=== PATIENT | male | born 1955 | race Caucasian/White ===

== ENCOUNTER 2016-12-01 15:18 | Emergency (ER) | payer BC ==
[~2016-12-01] VITALS: Ht 157.5 cm; Wt 86.0 kg
[2016-12-01 15:24] VITALS: BP 178/86; PULSE 65; RESP 16; TEMP 98.7; O2SAT 100
[2016-12-01] MEDS ORDERED: ONDA1TAB17 PO (15:30)
[2016-12-01] MEDS ORDERED: FENT1SUB2 (15:30)
[2016-12-01] MEDS ORDERED: CEPH500C PO (15:30)
[2016-12-01] MEDS ORDERED: ZOLP10TA3 PO (15:30)
[2016-12-01] MEDS ORDERED: METO10TA PO (15:30)
[2016-12-01] MEDS ORDERED: SODIUM CHLOR 0.9% 1000 ML INJ 1,000 ML IV SCH (15:31)
[2016-12-01 15:40] VITALS: O2SAT 97
--- NOTE | 2016-12-01 15:40 | PD ---
HPI Chief Complaint: GI Complaint Time Seen by Provider: 15:24 Travel History International Travel<30 days: No Contact w/Intl Traveler<30days: No Traveled to known affect area: No History of Present Illness HPI 61-year-old male complains of epigastric abdominal pain, nausea vomiting. Patient states that the symptoms started this morning. Patient has history of recurrent pancreatitis in the past. Patient also has history of chronic back pain and on fentanyl patch. 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 Patient denies any history of EtOH abuse. Patient states that the pain is severe sharp pain started around the epigastric area with radiation to the back. Patient states that he had persistent nausea vomiting since this morning. Patient denies any fever chills. Patient denies any dysuria or frequency. On a scale of 1-10 the pain is a 10. PFSH Past Medical History Diminished Hearing: No Neurologic: Yes Tetanus Vaccination: Unknown Influenza Vaccination: No Past Surgical History Appendectomy: Yes Pacemaker: Yes Social History Alcohol Use: No (quit years ago) Tobacco Use: Yes Substance Use: No Allergies-Medications (Allergen,Severity, Reaction): Coded Allergies: No Known Allergies (Unverified , 12/01/16) Reported Meds & Prescriptions Reported Meds & Active Scripts Active Reported Abstral (Fentanyl Citrate) 200 Mcg Tab 75 Cephalexin 500 Mg Cap 500 Mg PO Q12H Zolpidem (Zolpidem Tartrate) 10 Mg Tab 10 Mg PO HS PRN Metoclopramide (Metoclopramide HCl) 10 Mg Tab 10 Mg PO QID Ondansetron (Ondansetron HCl) 8 Mg Tab 8 Mg PO TID Review of Systems General / Constitutional: No: Fever Eyes: No: Visual changes HENT: No: Headaches Cardiovascular: No: Chest Pain or Discomfort Respiratory: No: Shortness of Breath Gastrointestinal: Positive: Nausea, Vomiting, Abdominal Pain Genitourinary: No: Dysuria Musculoskeletal: No: Pain Skin: No Rash Neurologic: No: Weakness Psychiatric: No: Depression Endocrine: No: Polydipsia Hematologic/Lymphatic: No: Easy Bruising Physical Exam Narrative GENERAL: Well-nourished, well-developed patient. SKIN: Focused skin assessment warm/dry. HEAD: Normocephalic. EYES: No scleral icterus. No injection or drainage. NECK: Supple, trachea midline. No JVD or lymphadenopathy. CARDIOVASCULAR: Regular rate and rhythm without murmurs, gallops, or rubs. RESPIRATORY: Breath sounds equal bilaterally. No accessory muscle use. GASTROINTESTINAL: Abdomen soft, nondistended. Patient has moderate tenderness on palpation epigastric area. No rebound tenderness. No mass. MUSCULOSKELETAL: No cyanosis, or edema. BACK: Nontender without obvious deformity. No CVA tenderness. Neurologic exam normal. Data Data Last Documented VS Vital Signs Date Time Temp Pulse Resp B/P Pulse Ox O2 Delivery O2 Flow Rate FiO2 12/01/16 15:40 97 12/01/16 15:26 16 12/01/16 15:24 98.7 65 178/86 Orders Complete Blood Count With Diff (12/01/16 15:31) Comprehensive Metabolic Panel (12/01/16 15:31) Lipase (12/01/16 15:31) Prothrombin Time / Inr (Pt) (12/01/16 15:31) Act Partial Throm Time (Ptt) (12/01/16 15:31) Urinalysis - C+S If Indicated (12/01/16 15:31) Ct Abd/Pel W Iv Contrast(Rout) (12/01/16 15:31) Iv Access Insert/Monitor (12/01/16 15:31) Ecg Monitoring (12/01/16 15:31) Oximetry (12/01/16 15:31) Ondansetron Inj (Zofran Inj) (12/01/16 15:45) Pantoprazole Inj (Protonix Inj) (12/01/16 15:45) Sodium Chlor 0.9% 1000 Ml Inj (Ns 1000 M (12/01/16 15:31) Ketorolac Inj (Toradol Inj) (12/01/16 15:45) Diphenhydramine Inj (Benadryl Inj) (12/01/16 16:00) Metoclopramide Inj (Reglan Inj) (12/01/16 16:00) Iohexol 350 Inj (Omnipaque 350 Inj) (12/01/16 16:39) Labs Laboratory Tests Test 12/01/16 15:43 White Blood Count 10.9 TH/MM3 Red Blood Count 5.75 MIL/MM3 Hemoglobin 17.0 GM/DL Hematocrit 50.5 % Mean Corpuscular Volume 87.8 FL Mean Corpuscular Hemoglobin 29.5 PG Mean Corpuscular Hemoglobin 33.6 % Concent Red Cell Distribution Width 11.4 % Platelet Count 246 TH/MM3 Mean Platelet Volume 8.0 FL Neutrophils (%) (Auto) 82.9 % Lymphocytes (%) (Auto) 12.3 % Monocytes (%) (Auto) 3.3 % Eosinophils (%) (Auto) 1.2 % Basophils (%) (Auto) 0.3 % Neutrophils # (Auto) 9.1 TH/MM3 Lymphocytes # (Auto) 1.3 TH/MM3 Monocytes # (Auto) 0.4 TH/MM3 Eosinophils # (Auto) 0.1 TH/MM3 Basophils # (Auto) 0.0 TH/MM3 CBC Comment DIFF FINAL Differential Comment Prothrombin Time 10.6 SEC Prothromb Time International 1.0 RATIO Ratio Activated Partial 22.8 SEC Thromboplast Time Sodium Level 141 MEQ/L Potassium Level 3.8 MEQ/L Chloride Level 106 MEQ/L Carbon Dioxide Level 22.1 MEQ/L Anion Gap 13 MEQ/L Blood Urea Nitrogen 18 MG/DL Creatinine 0.87 MG/DL Estimat Glomerular Filtration 90 ML/MIN Rate Random Glucose 199 MG/DL Calcium Level 9.5 MG/DL Total Bilirubin 1.4 MG/DL Aspartate Amino Transf 39 U/L (AST/SGOT) Alanine Aminotransferase 54 U/L (ALT/SGPT) Alkaline Phosphatase 100 U/L Total Protein 8.4 GM/DL Albumin 4.7 GM/DL Lipase 126 U/L [facility] Medical Decision Making Medical Screen Exam Complete: Yes Emergency Medical Condition: Yes Interpretation(s) Last Impressions Abdomen/Pelvis CT 12/01/16 1531 Signed Impressions: Service Date/Time: Thursday, December 01, 2016 16:29 - CONCLUSION: No acute CT findings in the abdomen or pelvis. Dewayne Stephen MD 1716 p.m. CBC within normal limit. CMP within normal limit. Glucose 199. AST 39. Total bili 1.4. Differential Diagnosis Differential diagnosis including gastritis, PUD, pancreatitis, cholecystitis, colitis, UTI, pyelonephritis. Narrative Course 61-year-old male with epigastric abdominal pain, nausea vomiting. History of pancreatitis and chronic back pain. Normal saline solution 1 25 cc an hour. Protonix 40 mg IV. Zofran 4 mg IV. Toradol 30 mg IV. Diagnosis Primary Impression: Abdominal pain Qualified Code: R10.13 - Epigastric pain Patient Instructions: General Instructions Additional Instructions: Take medications as directed. Follow-up with personal physician. Return if persistent problem or worse. Med/Other Pt SpecificInfo: Prescription(s) given Scripts Promethazine (Phenergan)25 Mg Tab25 Mg PO Q6H PRN (Nausea/Vomiting) #20 TAB Ref 0 Prov:Lyndon Valdez MD 12/01/16 Dicyclomine (Bentyl)20 Mg Tab20 Mg PO TID #30 TAB Prov:Lyndon Valdez MD 12/01/16 Sucralfate (Carafate)1 Gm Tab1 Gm PO QID #120 TAB On empty stomach Prov:Lyndon Valdez MD 12/01/16 Pantoprazole (Protonix)20 Mg Tab20 Mg PO DAILY #30 TAB Prov:Lyndon Valdez MD 12/01/16 Disposition: 01 DISCHARGE HOME Condition: Stable Lyndon Valdez MD December 01, 2016 15:40
[2016-12-01] MEDS ORDERED: PANTOPRAZOLE SODIUM 40 MG VIAL IVP ONE (15:45)
[2016-12-01] MEDS ORDERED: KETOROLAC TROMETHAMINE 30 MG/ML (IVP) VIAL IV PUSH ONE (15:45)
[2016-12-01] MEDS ORDERED: ONDANSETRON HCL 4 MG/2 ML VIAL IVP ONE (15:45)
[2016-12-01 15:50] LABS: AUTOMATED NEUTROPHIL # 9.1 TH/MM3 (1.8-7.7); BASOPHIL % 0.3 % (0.0-2.0); EOSINOPHIL # 0.1 TH/MM3 (0-0.4); EOSINOPHIL % 1.2 % (0.0-4.0); HEMATOCRIT 50.5 % (39.0-51.0); LYMPH % 12.3 % (9.0-44.0); LYMPHOCYTE # 1.3 TH/MM3 (1.0-4.8); MEAN CELL VOLUME 87.8 FL (80.0-100.0); MEAN CORPUSCULAR HEMOGLOBIN 29.5 PG (27.0-34.0); MEAN CORPUSCULAR HGB CONC 33.6 % (32.0-36.0); MONO % 3.3 % (0.0-8.0); NEUT % 82.9 % (16.0-70.0); PLATELET COUNT 246 TH/MM3 (150-450); RED BLOOD COUNT 5.75 MIL/MM3 (4.50-5.90); RED CELL DISTRIBUTION WIDTH 11.4 % (11.6-17.2); WHITE BLOOD COUNT 10.9 TH/MM3 (4.0-11.0)
[2016-12-01 15:53] LABS: HEMO FLAGS DIFF FINAL
[2016-12-01 15:59] LABS: CHLORIDE 106 MEQ/L (98-107); POTASSIUM 3.8 MEQ/L (3.5-5.1); SODIUM (NA) 141 MEQ/L (136-145)
[2016-12-01] MEDS ORDERED: METOCLOPRAMIDE HCL 10 MG/2 ML VIAL IV PUSH ONE (16:00)
[2016-12-01] MEDS ORDERED: diphenhydrAMINE HCL 50 MG/ML VIAL IV PUSH ONE (16:00)
[2016-12-01 16:02] LABS: ANION GAP 13 MEQ/L (5-15); BICARBONATE 22.1 MEQ/L (21.0-32.0)
[2016-12-01 16:03] LABS: BLOOD UREA NITROGEN 18 MG/DL (7-18)
[2016-12-01 16:04] LABS: APTT (PATIENT) 22.8 SEC (24.3-30.1); PROTHROMBIN TIME - PATIENT 10.6 SEC (9.8-11.6)
[2016-12-01 16:05] LABS: ALT (GPT) 54 U/L (12-78); AST (GOT) 39 U/L (15-37); GLOMERULAR FILTRATION RATE 90 ML/MIN (>89)
[2016-12-01 16:07] LABS: TOTAL BILIRUBIN ADULT 1.4 MG/DL (0.2-1.0)
[2016-12-01 16:08] LABS: ALKALINE PHOSPHATASE 100 U/L (45-117)
[2016-12-01] MEDS ORDERED: IOHEXOL 350 MG/ML 10 ML VIAL (for RAD DIAG) IV ONE (16:39)
--- NOTE | 2016-12-01 16:57 | RADHPO ---
EXAM DATE/TIME: 12/01/2016 16:29 [facility] COMPARISON: No previous studies available for comparison. INDICATIONS : Abdominal pain with vomiting. IV CONTRAST: 100 cc Omnipaque 350 (iohexol) IV ORAL CONTRAST: No oral contrast ingested. RADIATION DOSE: 15.24 CTDIvol (mGy) MEDICAL HISTORY : Pancreatitis. SURGICAL HISTORY : Pacemaker. Appendectomy.Fusion, lumbar.Spinal stimulator, device removed. ENCOUNTER: Initial ACUITY: 1 day PAIN SCALE: 8/10 LOCATION: abdomen TECHNIQUE: Volumetric scanning of the abdomen and pelvis was performed. Using automated exposure control and ad justment of the mA and/or kV according to patient size, radiation dose was kept as low as reasonably achievable to obtain optimal diagnostic quality images. FINDINGS: LOWER LUNGS: The visualized lower lungs are clear. LIVER: Homogeneous density without lesion. There is no dilation of the biliary tree. No calcified gallston es. SPLEEN: Normal size without lesion. PANCREAS: Within normal limits. KIDNEYS: Tiny bilateral renal cysts. No stone or hydronephrosis. ADRENAL GLANDS: Within normal limits. VASCULAR: No aortic aneurysm. No major vessel occlusion. Retroaortic left renal vein. BOWEL/MESENTERY: The stomach, small bowel, and colon demonstrate no acute abnormality. There is no free intraperitone al air or fluid. ABDOMINAL WALL: Within normal limits. RETROPERITONEUM: There is no lymphadenopathy. BLADDER: No wall thickening or mass. REPRODUCTIVE: Within normal limits. INGUINAL: There is no lymphadenopathy or hernia. MUSCULOSKELETAL: Previous lumbar hardware fusion. Degenerative changes. CONCLUSION: No acute CT findings in the abdomen or pelvis. Dewayne Stephen MD on December 01, 2016 at 16:51 Board Certified Radiologist. This report was verified electronically.
[2016-12-01] MEDS ORDERED: CARA1TAB6 PO (17:21)
[2016-12-01] MEDS ORDERED: PANT20 PO (17:21)
[2016-12-01] MEDS ORDERED: BENT20TA PO (17:21)
[2016-12-01] MEDS ORDERED: PROM25TA5 PO (17:21)
[2016-12-01 17:44] VITALS: BP 190/85
== END 2016-12-01 17:47 | disposition home or self-care (01) ==
LOC: PHED 15:18
DX: R10.13 Epigastric pain (principal); R11.2 Nausea with vomiting, unspecified
CPT/HCPCS: 74177; 80053; 83690; 85025; 85610; 85730; 96374; 96375; 99285; C9113; J1200; J1885; J2405; J2765; J7030; Q9967